=== PATIENT | female | born 1995 | race Hispanic/Latino ===

== ENCOUNTER 2020-08-11 07:44 | Emergency (ER) | payer SELFPAY ==
[2020-08-11 17:02] LABS: SARS-CoV-2 PCR by NAA Not Detected (NotDetected)
== END 2020-08-11 08:24 | disposition home or self-care (01) ==
LOC: NAV ERS 07:44
DX: J02.9 Acute pharyngitis, unspecified (principal); Z20.822 Contact with and (suspected) exposure to COVID-19
CPT/HCPCS: 87635; 99283; U0003; U0005

== ENCOUNTER 2021-04-27 08:15 | Emergency (ER) | payer OTHER, SELFPAY | END 2021-04-27 08:50 | disposition home or self-care (01) | LOC: NAV ERS 08:15 | DX: T78.40XA Allergy, unspecified, initial encounter (principal); R06.2 Wheezing; L98.9 Disorder of the skin and subcutaneous tissue, unspecified | CPT/HCPCS: 99283 ==

== ENCOUNTER 2021-07-06 19:25 | Emergency (ER) | payer OTHER, SELFPAY ==
[2021-07-06] MEDS ORDERED: Fentanyl 100 MCG/2 ML VIAL ONE (20:12)
[2021-07-06] MEDS ORDERED: Ketorolac Tromethamine 30 MG/ML VIAL ONE (20:14)
[2021-07-06] MEDS ORDERED: Ondansetron PF 4 MG/2 ML Vial ONE (21:53)
[2021-07-06] MEDS ORDERED: Morphine 4 MG/ML VIAL ONE (22:21)
== END 2021-07-06 23:00 | disposition home or self-care (01) ==
LOC: NAV ERS 19:25
DX: S42.302A Unspecified fracture of shaft of humerus, left arm, initial encounter for closed fracture (principal); S30.0XXA Contusion of lower back and pelvis, initial encounter; V89.2XXA Person injured in unspecified motor-vehicle accident, traffic, initial encounter
CPT/HCPCS: 29105; 72220; 96374; 96375; J1885; J2270; J2405; J3010